=== PATIENT | male | born 1960 | race Caucasian/White ===

== ENCOUNTER 2018-12-10 23:08 | Emergency (ER) | payer OTHER ==
[~2018-12-10] VITALS: Ht 177.8 cm; Wt 122.5 kg
[2018-12-10] MEDS ORDERED: METFORMIN HCL500 MG PO (23:24)
[2018-12-10] MEDS ORDERED: ZOCOR40 MG PO (23:25)
[2018-12-10] MEDS ORDERED: PRECOSE 25 MG25 M1 PO (23:25)
[2018-12-10] MEDS ORDERED: BLOOD PRESSURE PILL ×2 (23:26)
[2018-12-11] MEDS ORDERED: HYDROCODONE-AP1 EAC6 PO (00:41)
[2018-12-11 01:05] VITALS: BP 165/75
== END 2018-12-11 01:05 | disposition home or self-care (01) ==
LOC: M.ERS 23:08
DX: S61.012A Laceration without foreign body of left thumb without damage to nail, initial encounter (principal); S99.812A Other specified injuries of left ankle, initial encounter; E11.9 Type 2 diabetes mellitus without complications; I10 Essential (primary) hypertension; Z98.890 Other specified postprocedural states; W18.39XA Other fall on same level, initial encounter; Y93.89 Activity, other specified; Y92.89 Other specified places as the place of occurrence of the external cause; Y99.8 Other external cause status